=== PATIENT | male | born 2000 | race African-American/Black ===

== ENCOUNTER 2025-08-17 09:03 | Emergency (ER) | payer MEDICAID ==
[~2025-08-17] VITALS: Ht 177.8 cm; Wt 57.2 kg
[2025-08-17 09:17] VITALS: TEMP 98.4
[2025-08-17] MEDS ORDERED: IBUPROFEN 400 MG TABLET ONE (09:44)
[2025-08-17] MEDS: IBUPROFEN 400 MG TABLET PO ONE (09:48)
[2025-08-17 12:32] VITALS: BP 132/90; O2SAT 9
== END 2025-08-17 12:39 | disposition home or self-care (01) ==
LOC: ER 09:16
DX: S82.291A Other fracture of shaft of right tibia, initial encounter for closed fracture (principal); W17.89XA Other fall from one level to another, initial encounter; Y93.89 Activity, other specified; Y92.89 Other specified places as the place of occurrence of the external cause; Y99.9 Unspecified external cause status
CPT/HCPCS: 72110-TC; 73610-TC; 73630-TC; 73650-TC